=== PATIENT | female | born 1935 | race Caucasian/White ===

== ENCOUNTER 2023-03-26 20:45 | Inpatient (IN) | payer MEDICARE, BC ==
[~2023-03-26] VITALS: Ht 304.8 cm; Wt 57.2 kg
[2023-03-26 20:45] VITALS: BP 145/50; PULSE 72; RESP 18; TEMP 97.3
[2023-03-26 21:00] VITALS: BP 145/50; PULSE 72; RESP 18; TEMP 97.3
[2023-03-26] MEDS ORDERED: LACTULOSE 20G/30ML UDC PO PRN (21:45)
[2023-03-26] MEDS ORDERED: NALOXONE HCL 0.4MG/ML 1ML VIAL IV PRN (21:45)
[2023-03-26] MEDS ORDERED: TRAMADOL 50MG TABLET PO PRN (21:45)
[2023-03-26] MEDS ORDERED: DOCUSATE SODIUM 100MG CAPSULE PO PRN (21:45)
[2023-03-26] MEDS ORDERED: CLONIDINE 0.1MG TABLET PO PRN (21:45)
[2023-03-26] MEDS ORDERED: GUAIFENESIN 200MG/10ML SUGAR FREE UDC PO PRN (21:45)
[2023-03-26] MEDS ORDERED: ALPR0.25 PO (22:31)
[2023-03-26] MEDS: HYDRALAZINE HCL 50MG TABLET PO SCH (22:51)
[2023-03-27] MEDS: LEVOTHYROXINE SODIUM 25MCG TABLET PO SCH (06:06)
[2023-03-27 06:10] LABS: BASOPHILS % 0.4 % (0.0-2.0); EOSINOPHILS % 1.8 % (0.0-5.0); HEMATOCRIT. 27.3 % (36.0-48.0); HEMOGLOBIN. 9.4 g/dL (12.0-16.0); LYMPHOCYTES % 10.9 % (20.0-50.0); MEAN CORPUSCULAR HEMOGLOBIN 32.8 pg (28.0-32.0); MEAN CORPUSCULAR HGB CONC 34.5 g/dL (31.0-37.0); MEAN PLATELET VOLUME 8.1 fl (7.4-10.4); MONOCYTES % 6.5 % (2.0-8.0); NEUTROPHILS % 80.4 % (40.0-76.0); PLATELET 437 x1000/uL (130-400); RED BLOOD CELL COUNT 2.87 mill/uL (4.2-5.4); RED CELL DISTRIBUTION WIDTH 14.1 % (11.6-14.6); WHITE BLOOD COUNT 9.8 x1000/uL (4.5-11.0)
[2023-03-27 06:43] LABS: ALANINE AMINOTRANSFERASE 13 IU/L (10-49); ALBUMIN 3.5 g/dL (3.2-4.8); ASPARTATE AMINOTRANSFERASE 20 IU/L (<34); BILIRUBIN TOTAL 0.7 mg/dL (0.1-1.0); CALCIUM 8.9 mg/dL (8.7-10.4); CARBON DIOXIDE 23 mEq/L (21-32); CHLORIDE 106 mEq/L (98-107); GLUCOSE 96 mg/dL (70-105); POTASSIUM 3.6 mEq/L (3.5-5.1); PREALBUMIN 18.2 mg/dl (10.0-40.0); PROTEIN TOTAL 5.7 g/dL (6.0-8.3); SODIUM 138 mEq/L (136-145); UREA NITROGEN BLOOD 27 mg/dL (9-23)
[2023-03-27 08:00] VITALS: BP 122/69; PULSE 57; RESP 17; TEMP 96.8
[2023-03-27] MEDS: METOPROLOL TARTRATE 50MG TABLET PO SCH (09:00)
[2023-03-27] MEDS: ASPIRIN 81MG TABLET PO SCH (09:10)
[2023-03-27] MEDS: CLOPIDOGREL 75MG TABLET PO SCH (09:10)
[2023-03-27] MEDS: FERROUS SULFATE 325MG TABLET PO SCH (09:10)
[2023-03-27] MEDS: ASCORBIC ACID 500 MG TABLET PO SCH (09:11)
[2023-03-27] MEDS: ENOXAPARIN 30MG/0.3ML SYR SUBCUT SCH (09:11)
[2023-03-27] MEDS: HYDROCODONE/ACETAMINOPHEN 5/325MG TABLET PO PRN (09:13)
[2023-03-27] MEDS: AMLODIPINE 10MG TABLET PO SCH (09:14)
[2023-03-27 20:00] VITALS: BP 121/71; PULSE 70; RESP 18; TEMP 98
[2023-03-27] MEDS: ATORVASTATIN CALCIUM 40MG TABLET PO SCH (21:50)
[2023-03-28 05:57] LABS: AMMONIA 85 uMol/L (<32)
[2023-03-28 06:51] LABS: IRON 56 ug/dL (50-170); TOTAL IRON BINDING CAPACITY 168 ug/dl (250-425)
[2023-03-28 07:08] LABS: FERRITIN 331 ng/mL (10-291); FOLIC ACID (FOLATE) SERUM 12.49 ng/mL (>5.38); VITAMIN B12 SERUM 887 pg/mL (211-911)
[2023-03-28 08:00] VITALS: BP 143/41; PULSE 58; RESP 20; TEMP 97.3
[2023-03-28] MEDS: CYANOCOBALAMIN 1000MCG/ML VIAL IM SCH (08:47)
[2023-03-28 20:00] VITALS: BP 161/54; PULSE 63; RESP 18; TEMP 97.7
[2023-03-28] MEDS: LACTULOSE 20G/30ML UDC PO SCH (22:49)
[2023-03-28] MEDS: ACETAMINOPHEN 325MG TABLET PO PRN (23:09)
[2023-03-29 07:30] LABS: AMMONIA 23 uMol/L (<32)
[2023-03-29 08:00] VITALS: BP 142/50; PULSE 56; RESP 17; TEMP 97.4
[2023-03-29] MEDS: HYDRALAZINE HCL 100MG TABLET PO SCH (14:08)
[2023-03-29 20:00] VITALS: BP 136/48; PULSE 62; RESP 19; TEMP 97.1
[2023-03-30] MEDS: ALPRAZOLAM 0.25 MG TABLET PO PRN (03:14)
[2023-03-30 06:02] LABS: AMMONIA < 10 uMol/L (<32)
[2023-03-30] MEDS: LEVOTHYROXINE SODIUM 75MCG TABLET PO SCH (06:59)
[2023-03-30 07:27] LABS: PHOSPHORUS 2.7 mg/dL (2.5-4.9); T4 FREE 0.89 ng/dL (0.89-1.76); THYROID STIMULATING HORMONE 22.76 uIU/mL (0.55-4.78)
[2023-03-30 08:00] VITALS: BP 156/57; PULSE 52; RESP 17; TEMP 98.4
[2023-03-30] MEDS: MEGESTROL ACETATE 400 MG/10 ML UDC PO SCH (14:07)
[2023-03-30] MEDS: BISACODYL 10MG SUPP PR NR (15:00)
[2023-03-30] MEDS: LACTULOSE 20G/30ML UDC PO NR (15:09)
[2023-03-30] MEDS: BISACODYL 5MG TABLET PO PRN (15:09)
[2023-03-30] MEDS: DEXT 5%/0.45% NACL 1000ML 1,000 ML IV SCH (16:22)
[2023-03-30] MEDS: POLYETHYLENE GLYCOL 3350 (17GM) 1 DOSE PACK PO SCH (17:30)
[2023-03-30 20:00] VITALS: BP 140/41; PULSE 59; RESP 18; TEMP 98.6
[2023-03-30] MEDS ORDERED: LACTULOSE 20G/30ML UDC PO PRN (21:00)
[2023-03-31 06:23] LABS: AMMONIA 25 uMol/L (<32)
[2023-03-31 08:00] VITALS: BP 105/35; PULSE 55; RESP 20; TEMP 98.1
[2023-03-31 20:00] VITALS: BP 145/48; PULSE 75; RESP 20; TEMP 97.7
[2023-04-01 06:32] LABS: AMMONIA 85 uMol/L (<32)
[2023-04-01 08:00] VITALS: BP 133/53; PULSE 54; RESP 19; TEMP 97.9
[2023-04-01] MEDS: LACTULOSE 20G/30ML UDC PO SCH (08:04)
[2023-04-01] MEDS ORDERED: TRAMADOL 50MG TABLET PO PRN (08:15)
[2023-04-01] MEDS ORDERED: NALOXONE HCL 0.4MG/ML VIAL IV PRN (15:30)
[2023-04-01] MEDS: HYDROCODONE/ACETAMINOPHEN 5/325MG TABLET PO PRN (19:57)
[2023-04-01 20:00] VITALS: BP 130/40; PULSE 66; RESP 18; TEMP 97.2
[2023-04-02 04:50] LABS: CLARITY URINE CLOUDY (CLEAR); COLOR URINE YELLOW (YELLOW); GLUCOSE URINE NEGATIVE (NEGATIVE); KETONES URINE NEGATIVE (NEGATIVE); LEUKOCYTE ESTERASE URINE 3+ (NEGATIVE); NITRITE URINE NEGATIVE (NEGATIVE); OCCULT BLOOD URINE NEGATIVE (NEGATIVE); PROTEIN URINE NEGATIVE (NEGATIVE); SPECIFIC GRAVITY URINE 1.011 (1.005-1.030); UROBILINOGEN URINE 0.2 E.U./dL (0.2-1.0)
[2023-04-02 06:31] LABS: SQUAMOUS EPITHELIAL CELL URINE FEW /lpf (RARE/1+)
[2023-04-02 06:34] LABS: BACTERIA URINE NONE SEEN
[2023-04-02 06:35] LABS: YEAST URINE 2+
[2023-04-02 06:46] LABS: AMMONIA < 10 uMol/L (<32)
[2023-04-02 08:00] VITALS: BP 143/62; PULSE 60; RESP 18; TEMP 97.6
[2023-04-02] MEDS: FLUCONAZOLE 100MG TABLET PO SCH (08:48)
[2023-04-02] MEDS: ALPRAZOLAM 0.25 MG TABLET PO PRN (12:17)
[2023-04-02] MEDS: LACTULOSE 20G/30ML UDC PO SCH (14:35)
[2023-04-02 20:00] VITALS: BP 161/64; PULSE 80; RESP 19; TEMP 97.9
[2023-04-02] MEDS: ONDANSETRON HCL 4MG/2ML INJ IV PRN (22:01)
[2023-04-03 08:00] VITALS: BP 128/46; PULSE 66; RESP 19; TEMP 99.3
[2023-04-03] MEDS: METOPROLOL TARTRATE 100MG TABLET PO SCH (11:12)
[2023-04-03 20:00] VITALS: BP 123/36; PULSE 61; RESP 18; TEMP 98
[2023-04-04 06:49] LABS: CALCIUM 8.4 mg/dL (8.7-10.4); CARBON DIOXIDE 22 mEq/L (21-32); CHLORIDE 107 mEq/L (98-107); CREATININE 0.9 mg/dL (0.6-1.0); GLUCOSE 110 mg/dL (70-105); POTASSIUM 4.5 mEq/L (3.5-5.1); SODIUM 135 mEq/L (136-145); UREA NITROGEN BLOOD 21 mg/dL (9-23)
[2023-04-04 07:26] LABS: BASOPHILS % 0.4 % (0.0-2.0); EOSINOPHILS % 1.7 % (0.0-5.0); HEMOGLOBIN. 7.3 g/dL (12.0-16.0); LYMPHOCYTES % 11.6 % (20.0-50.0); MEAN CORPUSCULAR HEMOGLOBIN 34.2 pg (28.0-32.0); MEAN CORPUSCULAR HGB CONC 35.6 g/dL (31.0-37.0); MEAN CORPUSCULAR VOLUME 95.9 fL (81.0-99.0); MEAN PLATELET VOLUME 9.2 fl (7.4-10.4); MONOCYTES % 7.9 % (2.0-8.0); NEUTROPHILS % 78.4 % (40.0-76.0); PLATELET 281 x1000/uL (130-400); RED BLOOD CELL COUNT 2.12 mill/uL (4.2-5.4); RED CELL DISTRIBUTION WIDTH 14.7 % (11.6-14.6); WHITE BLOOD COUNT 9.9 x1000/uL (4.5-11.0)
[2023-04-04 08:00] VITALS: BP 142/61; PULSE 82; RESP 21; TEMP 98.3
[2023-04-04 08:47] LABS: HEMATOCRIT. 20.4 % (36.0-48.0)
[2023-04-04 10:16] LABS: IRON 39 ug/dL (50-170); TOTAL IRON BINDING CAPACITY 277 ug/dl (250-425)
[2023-04-04] MEDS: FERROUS SULFATE 325MG TABLET PO SCH (13:30)
[2023-04-04] MEDS: DOCUSATE SODIUM 250MG CAPSULE PO SCH (15:04)
[2023-04-04 20:00] VITALS: BP 132/56; PULSE 62; RESP 18; TEMP 97.5
[2023-04-04] MEDS: SORBITOL 70% SOLN 30ML PO NR (21:15)
[2023-04-05 06:40] LABS: BASOPHILS % 0.4 % (0.0-2.0); LYMPHOCYTES % 12.6 % (20.0-50.0); MEAN CORPUSCULAR HEMOGLOBIN 33.3 pg (28.0-32.0); MEAN CORPUSCULAR HGB CONC 34.6 g/dL (31.0-37.0); MEAN CORPUSCULAR VOLUME 96.3 fL (81.0-99.0); MONOCYTES % 7.9 % (2.0-8.0); NEUTROPHILS % 77.1 % (40.0-76.0); PLATELET 272 x1000/uL (130-400); RED BLOOD CELL COUNT 2.15 mill/uL (4.2-5.4); RED CELL DISTRIBUTION WIDTH 15.2 % (11.6-14.6); WHITE BLOOD COUNT 9.9 x1000/uL (4.5-11.0)
[2023-04-05 07:50] LABS: HEMATOCRIT. 20.7 % (36.0-48.0); HEMOGLOBIN. 7.2 g/dL (12.0-16.0)
[2023-04-05 08:00] VITALS: BP 143/55; PULSE 62; RESP 17; TEMP 97.1
[2023-04-05] MEDS: SORBITOL 70% SOLN 30ML PO NR (12:23)
[2023-04-05 20:00] VITALS: BP 134/39; PULSE 61; RESP 17; TEMP 97.9
[2023-04-06 08:00] VITALS: BP 114/63; PULSE 61; RESP 17; TEMP 97.9
[2023-04-06 17:15] LABS: BASOPHILS % 0.3 % (0.0-2.0); EOSINOPHILS % 1.9 % (0.0-5.0); HEMATOCRIT. 21.1 % (36.0-48.0); HEMOGLOBIN. 7.2 g/dL (12.0-16.0); LYMPHOCYTES % 10.9 % (20.0-50.0); MEAN CORPUSCULAR HEMOGLOBIN 33.9 pg (28.0-32.0); MEAN CORPUSCULAR HGB CONC 34.4 g/dL (31.0-37.0); MEAN CORPUSCULAR VOLUME 98.6 fL (81.0-99.0); MEAN PLATELET VOLUME 9.1 fl (7.4-10.4); MONOCYTES % 9.7 % (2.0-8.0); NEUTROPHILS % 77.2 % (40.0-76.0); PLATELET 256 x1000/uL (130-400); RED BLOOD CELL COUNT 2.14 mill/uL (4.2-5.4); RED CELL DISTRIBUTION WIDTH 15.8 % (11.6-14.6); WHITE BLOOD COUNT 9.4 x1000/uL (4.5-11.0)
[2023-04-06 18:09] LABS: CLARITY URINE TURBID (CLEAR); COLOR URINE DARK YELLOW (YELLOW); GLUCOSE URINE NEGATIVE (NEGATIVE); KETONES URINE TRACE (NEGATIVE); LEUKOCYTE ESTERASE URINE 2+ (NEGATIVE); NITRITE URINE POSITIVE (NEGATIVE); OCCULT BLOOD URINE 3+ (NEGATIVE); PH URINE 5.5 (4.5-8.0); PROTEIN URINE 2+ (NEGATIVE); SPECIFIC GRAVITY URINE 1.018 (1.005-1.030)
[2023-04-06 18:19] LABS: RBC URINE TNTC /hpf (0-2); WBC URINE TNTC /hpf (0-2)
[2023-04-06 18:20] LABS: BACTERIA URINE 3+; SQUAMOUS EPITHELIAL CELL URINE 1+ /lpf (RARE/1+); YEAST URINE 4+
[2023-04-06 20:00] VITALS: BP 106/41; PULSE 56; RESP 18; TEMP 97.3
[2023-04-06] MEDS: FLUCONAZOLE 100MG TABLET PO SCH (20:45)
[2023-04-07 08:00] VITALS: BP 125/47; PULSE 63; RESP 17; TEMP 97.9
[2023-04-07 10:16] VITALS: BP 125/47; PULSE 63; TEMP 97.9; O2SAT 97
[2023-04-07 12:15] VITALS: BP 125/47; PULSE 63; RESP 17
== END 2023-04-07 14:32 | DRG 64 ==
PROVIDERS: ADMIT Physical Medicine & Rehabilitation Spinal Cord Injury Medicine; ATTEND Hospitalist
DX: I63.9 Cerebral infarction, unspecified (principal); G93.41 Metabolic encephalopathy; S82.042A Displaced comminuted fracture of left patella, initial encounter for closed fracture; N17.9 Acute kidney failure, unspecified; N39.0 Urinary tract infection, site not specified; E46 Unspecified protein-calorie malnutrition; E72.20 Disorder of urea cycle metabolism, unspecified; Z68.1 Body mass index [BMI] 19.9 or less, adult; I10 Essential (primary) hypertension; Z82.49 Family history of ischemic heart disease and other diseases of the circulatory system; E03.9 Hypothyroidism, unspecified; E78.00 Pure hypercholesterolemia, unspecified; F41.9 Anxiety disorder, unspecified; D63.8 Anemia in other chronic diseases classified elsewhere; D50.9 Iron deficiency anemia, unspecified; E78.5 Hyperlipidemia, unspecified; E86.0 Dehydration; I35.2 Nonrheumatic aortic (valve) stenosis with insufficiency; D51.0 Vitamin B12 deficiency anemia due to intrinsic factor deficiency; D64.89 Other specified anemias; D75.839 Thrombocytosis, unspecified; H70.91 Unspecified mastoiditis, right ear; M71.21 Synovial cyst of popliteal space [Baker], right knee; R62.7 Adult failure to thrive; R26.9 Unspecified abnormalities of gait and mobility; K59.00 Constipation, unspecified; L60.3 Nail dystrophy; M20.40 Other hammer toe(s) (acquired), unspecified foot; R00.1 Bradycardia, unspecified; R05.9 Cough, unspecified; R11.0 Nausea; R29.6 Repeated falls; R68.0 Hypothermia, not associated with low environmental temperature; M79.605 Pain in left leg; M79.672 Pain in left foot; R14.0 Abdominal distension (gaseous); R53.81 Other malaise; Z79.02 Long term (current) use of antithrombotics/antiplatelets; Z79.82 Long term (current) use of aspirin; Z79.899 Other long term (current) drug therapy; Z87.891 Personal history of nicotine dependence; Z88.2 Allergy status to sulfonamides; X58.XXXA Exposure to other specified factors, initial encounter; Y93.89 Activity, other specified; Y92.89 Other specified places as the place of occurrence of the external cause; Y99.8 Other external cause status
CPT/HCPCS: 36415; 74018; 80048; 80053; 81003; 82140; 82270; 82306; 82607; 82728; 82746; 83036; 83540; 83550; 83735; 84100; 84134; 84439; 84443; 84481; 85025; 86376; 87106; 92523; 92610; 97110; 97116; 97150; 97162; 97166; 97530; 97535; 97542; A6261; J1650; J2405; J3420; A4315